=== PATIENT | female | born 1990 | race Caucasian/White ===

== ENCOUNTER 2016-06-26 15:43 | Emergency (ER) | payer OTHER ==
[2016-06-26 15:54] VITALS: RESP 16; O2SAT 99
--- NOTE | 2016-06-26 16:22 | DX ---
Left Wrist, Four Views Clinical Indications: Fell on ice. Left wrist pain. Findings: No fracture or dislocation. Joint spaces have normal thickness. No erosions are seen. Impression: Normal.
--- NOTE | 2016-06-26 17:37 | EDPHY ---
H & P Time Seen by Provider: 06/26/16 16:00 HPI/ROS: CHIEF COMPLAINT: Left wrist pain HISTORY OF PRESENT ILLNESS: 25-year-old female presents to the emergency department complaining of left wrist pain after fall on outstretched hand yesterday while hiking. Patient reports she felt something pop, was not sure if it was her back or her wrist, her wrist has continued to be mildly swollen with tenderness upon range of motion today. She denies previous injury to this wrist, no numbness or tingling to her hand. No head strike, no other complaints. She is [id number]. Smoking Status: Never smoked Physical Exam: GEN: Awake, alert, oriented, no acute distress RESP: nl resp effort MSK: Left wrist with mild tenderness over distal radius, no snuffbox tenderness , no ulnar styloid tenderness, full range of motion, sensation intact to light touch, cap refill less than 2 seconds, 2+ radial pulse SKIN: No break in skin Constitutional: Initial Vital Signs Temperature (C) 36.5 C 06/26/16 15:51 Heart Rate 79 06/26/16 15:51 Respiratory Rate 16 06/26/16 15:51 Blood Pressure 126/74 H 06/26/16 15:51 O2 Sat (%) 99 06/26/16 15:51 O2 Delivery Mode Room Air Allergies/Adverse Reactions: amoxicillin [Amoxicillin] Allergy (Intermediate, Verified 10/23/15 10:06) eyes swell ciprofloxacin Allergy (Intermediate, Verified 10/23/15 10:06) eyes swell CEFALOSPORINS Allergy (Intermediate, Uncoded 10/23/15 10:06) eyes swell Home Medications: Medication Instructions Recorded Microgestin 10/23/15 MDM/Departure - MDM Diagnostics: Left wrist x-ray independently reviewed by me- Impression: Normal. Dictated By: Ton Domingo MD - Depart Disposition: Home, Routine, Self-Care Clinical Impression: Left wrist sprain Qualifiers: Encounter type: initial encounter Qualifier Code: (S63.502A) Unspecified sprain of left wrist, initial encounter Condition: Good Instructions: Wrist Sprain (ED) Additional Instructions: Rest, ice, elevate, take 600mg of ibuprofen every 8 hours with food for 3-5 days as needed for pain and swelling. Wear wrist splint. Follow up with orthopedist or [facility] for repeat x-ray in 7-10 days if you still have pain. Return to the emergency department for any numbness, tingling, discoloration of you limb or other concerns. Referrals: Heraclio Cornejo MD [Medical Doctor] - As per Instructions (Orthopedist on-call )
[2016-06-26 17:47] VITALS: BP 120/73; PULSE 72; TEMP 97.2
== END 2016-06-26 17:44 | disposition home or self-care (01) ==
DX: S63.502A Unspecified sprain of left wrist, initial encounter (principal); W18.39XA Other fall on same level, initial encounter; Y99.8 Other external cause status; Y93.01 Activity, walking, marching and hiking
CPT/HCPCS: L3807